=== PATIENT | female | born 1975 | race Caucasian/White ===

== ENCOUNTER 2018-03-28 22:26 | Emergency (ER) | payer SELFPAY ==
[2018-03-28] MEDS ORDERED: MAG HYDROX/ALUMINUM HYD/SIMETH 30 ML UDC PO ONE (22:37)
[2018-03-28] MEDS ORDERED: LIDOCAINE HCL 2% VISC. ORAL 300MG/15ML UDC PO ONE (22:37)
--- NOTE | 2018-03-28 22:41 | ED Physician Documentation ---
General Adult - HISTORIAN Historian: patient - HPI Stated Complaint: heartburn Chief Complaint: General Adult Additional Information: Patient presents to ED with heartburn. She ran out of her Dexilent medication and would like a refill. Onset: days ago (2) Timing: still present Further Comments: no - ROS CONST: no problems - PAST HX Past History: none Other History: none Surgeries/Procedures: none Allergies/Adverse Reactions: Allergies Allergy/AdvReac Type Severity Reaction Status Date / Time No Known Allergies Allergy Verified 03/28/18 22:41 Home Medications: Ambulatory Orders Medication Instructions Recorded Dexlansoprazole [Dexilant] 1 tab PO DAILY 03/28/18 Dexlansoprazole [Dexilant] 60 mg PO DAILY #30 cap. 03/28/18 - SOCIAL HX Smoking History: cigarettes Alcohol Use: none Drug Use: none - FAMILY HX Family History: No - REVIEWED ASSESSMENTS Nursing Assessment Reviewed: Yes Vitals Reviewed: Yes ED Results Lab/Radiology - Orders Orders: ED Orders Category Date Time Status Lidocaine 2%Visc 15ml [Xylocaine] Med 03/28/18 22:37 Once 15 mg PO NOW ONE Mag Hydrox/Aluminum Hyd/Simeth [Mylanta] Med 03/28/18 22:37 Once 30 ml PO NOW ONE General Adult Physical Exam - PHYSICAL EXAM GENERAL APPEARANCE: no distress EENT: TAYLOR NECK: supple RESPIRATORY: no resp distress CVS: reg rate & rhythm, heart sounds normal ABDOMEN: soft, normal bowel sounds BACK: no CVA tenderness SKIN: warm/dry EXTREMITIES: non-tender NEURO: oriented X3, motor nml Discharge Clincal Impression: Heartburn Prescriptions: Dexlansoprazole [Dexilant] 60 mg PO DAILY #30 cap. Referrals: Primary Doctor,No [Primary Care Provider] - 2 Days Condition: Stable Disposition: HOME, SELF-CARE Decision to Admit: NO Date of Decison to Admit: 03/28/18 Decision Time: 22:43
[2018-03-28 22:44] VITALS: BP 116/71
== END 2018-03-28 22:52 | disposition home or self-care (01) ==
LOC: ED 22:26
DX: R12 Heartburn (principal)
CPT/HCPCS: 99282; 99283; A9270

== ENCOUNTER 2018-05-07 05:15 | Emergency (ER) | payer SELFPAY ==
[2018-05-07] MEDS ORDERED: 0.9 % SODIUM CHLORIDE 50 ML IV ONE (05:26)
[2018-05-07] MEDS ORDERED: 0.9 % SODIUM CHLORIDE 1,000 ML IV ONE ×2 (05:26→05:40)
[2018-05-07] MEDS ORDERED: PROMETHAZINE HCL 25 MG/ML VIAL ONE (05:26)
[2018-05-07 05:49] LABS: BASOPHILS % 0.7 (0.0-1.5); MEAN CORPUSCULAR HEMOGLOBIN 30.6 pg (28.0-34.0); MONOCYTES % 8.9 % (0.0-11.0); NEUTROPHILS # 3.3 # k/uL (1.4-7.7)
[2018-05-07 05:57] VITALS: BP 133/99
[2018-05-07 06:02] LABS: eGFR (Non-African) > 60
[2018-05-07] MEDS ORDERED: MAG HYDROX/ALUMINUM HYD/SIMETH 30 ML, Lidocaine 2%Visc 15ml 20 MG, PHENobarb/HYOSCY/ATR... PO ONE ×3 (06:16)
[2018-05-07] MEDS ORDERED: MAG HYDROX/ALUMINUM HYD/SIMETH 30 ML UDC PO ONE (06:25)
[2018-05-07] MEDS ORDERED: LIDOCAINE HCL 2% VISC. ORAL 300MG/15ML UDC ONE (06:25)
--- NOTE | 2018-05-07 06:26 | ED Physician Documentation ---
Abdominal Pain - HISTORIAN Historian: patient - HPI Stated Complaint: abd pain, n/v Chief Complaint: Abdominal Pain Onset: hours (1 hour ago) Duration: constant Timing: still present Context: denies: out of country travel, bad food, recent trauma Severity: severe Quality: pain (epigastric), cramping Associated Symptoms: nausea, vomiting. denies: fever, chills, diarrhea Exacerbated by: nothing Relieved by: nothing Further Comments: yes (43 year old woman presents with complaints of cramping and abdominal pain. Patient reports similar pain for over one year, every 2-3 months. Is not followed by GI, does not have a PCP. Last GI doctor was in [place]. Patent reports waking from sleep with severe epigastric pain and cramping.) - ROS CONST: denies: no problems GI/: none CVS/RESP: none EYES/ENT: none MS/SKIN/LYMPH: none NEURO/PSYCH: none - SOCIAL HX Smoking History: cigarettes - FAMILY HX Family History: denies: none - PAST HX Past History: other (GERD, anxiety) Surgeries/Procedures: cholecystectomy, hysterectomy Home Medications: Ambulatory Orders Medication Instructions Recorded Sucralfate [Carafate] 1 gm PO ACHS #120 tablet 05/07/18 Allergies/Adverse Reactions: Allergies Allergy/AdvReac Type Severity Reaction Status Date / Time No Known Allergies Allergy Verified 03/28/18 22:41 - VITAL SIGNS Vital Signs: Vital Signs Temp Pulse Resp BP Pulse Ox 97.7 F 68 24 133/99 99 05/07/18 05:16 05/07/18 05:16 05/07/18 05:16 05/07/18 05:16 05/07/18 05:16 - REVIEWED ASSESSMENTS Nursing Assessment Reviewed: Yes Vitals Reviewed: Yes Progress - Progress Progress: 0630 Patient resting quietly after promethazine. very mild constipation on abd complete. Pain likely related to gastritis or IBS. Instructed patient to establish GI and PCP doctors. Patient verbalized understanding. ED Results Lab/Radiology - Lab Results Lab Results: Lab Results 05/07/18 05/07/18 05:40 05:39 WBC 8.00 K/ul K/ul (4.00-12.00) RBC 4.40 M/ul M/ul (3.90-5.20) Hgb 13.5 g/dL g/dL (12.0-16.0) Hct 39.9 % % (34.5-46.5) MCV 91.0 fl fl (80.0-100.0) MCH 30.6 pg pg (28.0-34.0) MCHC 33.7 g/dL g/dL (30.0-36.0) RDW 13.1 % % (11.3-14.3) Plt Count 324 K/mm3 K/mm3 (130-400) Neut % (Auto) 40.7 % % (39.0-79.0) Lymph % (Auto) 46.7 % % (16.0-50.0) Stark % (Auto) 8.9 % % (0.0-11.0) Eos % (Auto) 3.0 % % (0.0-6.8) Baso % (Auto) 0.7 (0.0-1.5) Neut # (Auto) 3.3 # k/uL # k/uL (1.4-7.7) Lymph # (Auto) 3.7 # k/uL # k/uL (0.6-4.0) Stark # (Auto) 0.7 # k/uL # k/uL (0.0-0.9) Eos # (Auto) 0.2 # k/uL # k/uL (0.0-0.6) Baso # (Auto) 0.1 # k/uL # k/uL (0.0-0.5) Sodium 135 mmol/L L mmol/L (136-145) Potassium 3.6 mmol/L mmol/L (3.5-5.1) Chloride 99 mmol/L mmol/L (98-107) Carbon Dioxide 30 mmol/L mmol/L (22-30) BUN 18 mg/dL H mg/dL (7-17) Creatinine 0.97 mg/dL mg/dL (0.52-1.04) Estimated Creat Clear 135 Est GFR ( Amer) > 60 (60 - ) Est GFR (Non-Af Amer) > 60 (60 - ) Glucose 89 mg/dL mg/dL (74-106) Calcium 8.5 mg/dL mg/dL (8.4-10.2) Total Bilirubin 0.3 mg/dL mg/dL (0.2-1.3) AST 32 U/L U/L (15-46) ALT 36 U/L U/L (13-69) Alkaline Phosphatase 36 U/L L U/L (38-126) Total Protein 6.4 g/dL g/dL (6.3-8.2) Albumin 3.9 g/dL g/dL (3.5-5.0) - Orders Orders: ED Orders Category Date Time Status Place IV Lock 1T Care 05/07/18 05:30 Active ABD COMPLETE [RAD] Stat Exams 05/07/18 Ordered CBC/PLATELET/DIFF Stat Lab 05/07/18 05:40 Completed CMP Stat Lab 05/07/18 05:39 Completed UA MACRO DIP ONLY Stat Lab 05/07/18 05:30 Received 0.9 % Sodium Chloride [Normal Saline] 1,000 ml Med 05/07/18 05:26 Discontinued IV .STK-MED 0.9 % Sodium Chloride [Normal Saline] 1,000 ml Med 05/07/18 05:40 Discontinued IV NOW 0.9 % Sodium Chloride [Sodium Chloride] 50 ml Med 05/07/18 05:26 Discontinued IV .STK-MED Dicyclomine HCl [Bentyl] Med 05/07/18 06:28 Discontinued 10 mg PO NOW ONE Dicyclomine HCl [Bentyl] Med 05/07/18 06:34 Discontinued 20 mg PO NOW ONE Lidocaine 2%Visc 15ml [Xylocaine] Med 05/07/18 06:25 Discontinued 300 mg .ROUTE .STK-MED ONE Mag Hydrox/Aluminum Hyd/Simeth [Mylanta] Med 05/07/18 06:25 Discontinued 30 ml PO .STK-MED ONE Mag Hydrox/Aluminum Hyd/Simeth [Mylanta] 30 ml Med 05/07/18 06:16 Ordered Lidocaine 2%Visc 15ml [Xylocaine] 20 mg PHENobarb/HYOSCY/ATROPINE/SCOP [] 10 ml PO NOW Magnesium Hydroxide [Milk of Magnesia] Med 05/07/18 06:48 Once 2,400 mg PO NOW ONE Promethazine HCl [Phenergan] Med 05/07/18 05:26 Discontinued 25 mg .ROUTE .STK-MED ONE Promethazine HCl [Phenergan] 12.5 mg Med 05/07/18 06:40 Active 0.9 % Sodium Chloride [Sodium Chloride] 50 ml IV NOW Abdominal Pain Physical Exam - Physical Exam General Appearance: moderate distress (patient lying in floor; would not get up, assisted to stretcher by staff. ) EENT: eye inspection normal, ENT inspection normal, pharynx normal, no signs of dehydration, TAYLOR, no nystagmus, TM's nml RESPIRATORY: no resp distress, chest non-tender, breath sounds normal CVS: reg rate & rhythm, heart sounds normal, equal pulses, no murmur, no gallop, PMI nml, no JVD, no friction rub, 24 ABDOMEN: soft, no organomegaly, no abdominal bruit, no distension, tenderness (epigastric with deep palpation; negative Patti, neg womack's), decreased BS. No: McBurney's point tenderne, rebound, distended SKIN: normal color, warm/dry, NR, INT, PAL, DR EXTREMITIES: non-tender, normal range of motion, no evidence of injury, no edema, J, [employer] NEURO: oriented X3, CN's nml as tested, motor nml, sensation nml Vital Signs: Vital Signs Temp Pulse Resp BP Pulse Ox 97.7 F 68 24 133/99 99 05/07/18 05:16 05/07/18 05:16 05/07/18 05:16 05/07/18 05:16 05/07/18 05:16 Discharge Clincal Impression: Abdominal cramping Gastritis Qualifiers: Gastritis type: unspecified gastritis Chronicity: acute Gastritis bleeding: without bleeding Qualified Code(s): K29.00 - Acute gastritis without bleeding Prescriptions: Sucralfate [Carafate] 1 gm PO ACHS #120 tablet Referrals: Primary Doctor,No [Primary Care Provider] - 2 Days Additional Instructions: Diet: Clear liquids Sprite/7-up Juices apple, white grape Gatorade/Powerade Jello Popsicles When tolerating clear liquids, advance to bland/brat diet - such as crackers, rice, Bananas, apples/applesauce or toast Return to the emergency department or call your doctor, if you are having severe abdominal pain, fever >101.0, or if there is blood in the vomit or diarrhea, or you cannot keep down liquids or solid food. Condition: Stable Disposition: 01 HOME, SELF-CARE Decision to Admit: NO Decision Time: 06:52
[2018-05-07] MEDS ORDERED: DICYCLOMINE HCL 20 MG TABLET PO ONE ×2 (06:28→06:34)
[2018-05-07] MEDS ORDERED: PROMETHAZINE HCL 12.5 MG in 0.9 % SODIUM CHLORIDE 50 ML IV ONE (06:40)
[2018-05-07 06:48] LABS: OCCULT BLOOD,URINE TRACE-INTACT (NEGATIVE); UROBILINOGEN URINE 0.2 Eu (0.2-1.0)
[2018-05-07] MEDS ORDERED: MAGNESIUM HYDROXIDE 2,400 MG/30 ML UDC PO ONE (06:48)
--- NOTE | 2018-05-07 09:04 | Diagnostic Imaging Report ---
SANA GRAMAJO (SHOE COVERER) - [facility] [address] [address] Report Submission Date: May 07, 2018 7:05:10 AM PHD INTERNSHIP Patient Study Name: JAMES CHEUNG Date: May 07, 2018 6:33:00 AM PHD INTERNSHIP Modality Type: CR Gender: F Description: ABD COMPLETE : 71 Institution: [facility] Physician: SANA GRAMAJO (JULIAN) - ER HISTORY: 43-year-old female with upper abdominal pain for 4 years. COMPARISON: None available TECHNIQUE: Supine and upright views of the abdomen were performed. FINDINGS: No abnormal bowel dilatation. Gas is present in the distal colon. The upright film does not demonstrate pathologic-appearing air-fluid levels or free air under the diaphragm. No abnormal calcifications are identified overlying the urinary tract. There are phleboliths in the pelvis. Surgical clips in the right upper quadrant are consistent with prior cholecystectomy. There is mild lumbar degenerative disc disease. IMPRESSION: 1. No evidence of bowel obstruction. 2. Postoperative changes of cholecystectomy. Electronically signed on May 07, 2018 7:05:10 AM PHD INTERNSHIP by: Kentrell NG
== END 2018-05-07 07:09 | disposition home or self-care (01) ==
LOC: ED 05:15
DX: K29.00 Acute gastritis without bleeding (principal); R10.13 Epigastric pain
CPT/HCPCS: 36415; 74019; 80053; 81002; 85025; 96374; 99283; 99284; A9270; J2550; J7030; S1016

== ENCOUNTER 2018-06-24 14:30 | Emergency (ER) | payer SELFPAY ==
--- NOTE | 2018-06-24 14:37 | ED Physician Documentation ---
Low Back Pain - HISTORIAN Historian: patient - HPI Stated Complaint: low back pain x 6 years Chief Complaint: Low Back Pain/ Injury History: back pain Onset: other (6 years ) Duration: intermittent Recent Injury: No Other Injuries: other (none ) Severity: moderate Quality: burning, sharp, dull, similar- prior back pain Associated Symptoms: other (she has tingling ) Worsened By:: upright position Relieved By: nothing Further Comments: yes (She states she has had low back pain and upper and middle for 6 years and she has had xrays most recently 6 years ago "I havent told my dr because i am focused on being a mom not focused on myself" She denies any new injury. No change in pain. No loss of control of bowel or bladder. She reports she does not frequently take OTC meds. She does not have a PCP due to no insurance) - ROS CONST: no problems CVS/RESP: none EYES/ENT: none MS/SKIN/LYMPH: none Neuro/Psych: none - PAST HX Past History: back pain Immunizations: UTD Allergies/Adverse Reactions: Allergies Allergy/AdvReac Type Severity Reaction Status Date / Time No Known Allergies Allergy Verified 06/24/18 17:01 Home Medications: Ambulatory Orders Medication Instructions Recorded Unobtainable 06/24/18 - SOCIAL HX Smoking History: non-smoker Alcohol Use: none Drug Use: none - FAMILY HX Family History: none - VITAL SIGNS Vital Signs: Vital Signs Temp Pulse Resp BP Pulse Ox 98.1 F 59 L 16 100/68 98 06/24/18 14:52 06/24/18 14:52 06/24/18 14:52 06/24/18 14:52 06/24/18 14:52 - REVIEWED ASSESSMENTS Nursing Assessment Reviewed: Yes Vitals Reviewed: Yes ED Results Lab/Radiology - Radiology Radiology Impressions: Examination: Plain film lumbar spine History: BACK PAIN Findings: 2 views of the lumbar spine demonstrate normal height. No anterior compression. Mild degenerative spurring. No soft tissue abnormalities. Right upper quadrant surgical clips. Impression: No acute osseous process. Electronically signed on Jun 24, 2018 3:32:00 PM CDT by: Eduni Anand - Orders Orders: ED Orders Category Date Time Status LUMBAR SPINE XR 2 OR 3 VIEWS [L SPINE 2 OR 3 VIEWS] [ Exams 06/24/18 Completed RAD] Stat Ketorolac Tromethamine [Toradol] Med 06/24/18 15:48 Discontinued 60 mg IM NOW ONE methylPREDNISolone ACETATE [Depo-Medrol] Med 06/24/18 15:49 Discontinued 80 mg IM NOW ONE Low Back Pain/Injury - Physical Exam General Appearance: no acute distress, alert EENT: eye inspection normal, no signs of dehydration Neck: non-tender Resp/CVS: chest non-tender Abdomen: non-tender Back: painless ROM, muscle spasm (upper and mid ). No: CVA tenderness Straight Leg Raising: Negative Left, Negative Right Neuro/Psych: oriented x3 Skin: warm/dry, normal color Extremities: non-tender, normal range of motion, no evidence of injury, no edema Discharge Clincal Impression: Low back pain Qualifiers: Chronicity: chronic Back pain laterality: midline Sciatica presence: without sciatica Qualified Code(s): M54.5 - Low back pain Referrals: Primary Doctor,No [Primary Care Provider] - 2 Days Comments: 1. Tylenol or Ibuprofen as directed on bottle for pain 2. Ice or heat for comfort 3. FOLLOW UP WITH YOUR PCP in 2 days 4. Cyclobenzaprine 10 mg take 1 by mouth every 8 hours as needed for pain 5. Return to ER for any increasing concerns Condition: Stable Disposition: 01 HOME, SELF-CARE Decision to Admit: NO Date of Decison to Admit: 06/24/18 Decision Time: 15:57
[2018-06-24] MEDS: KETOROLAC TROMETHAMINE 60 MG/2 ML VIAL IM ONE (16:00)
[2018-06-24] MEDS: methylPREDNISolone ACETATE 80 MG/ML VIAL IM ONE (16:01)
--- NOTE | 2018-06-24 16:32 | Diagnostic Imaging Report ---
ALFREDO ALLEN [facility] [address] [facility] [address] [place], [place]. [address] Report Submission Date: Jun 24, 2018 3:32:00 PM CDT Patient Study Name: JAMES CHEUNG Date: Jun 24, 2018 3:07:52 PM CDT Modality Type: DX Gender: F Description: L SPINE 2 OR 3 VIEWS : 71 Institution: [facility] Physician: ALFREDO ALLEN Examination: Plain film lumbar spine History: BACK PAIN Findings: 2 views of the lumbar spine demonstrate normal height. No anterior compression. Mild degenerative spurring. No soft tissue abnormalities. Right upper quadrant surgical clips. Impression: No acute osseous process. Electronically signed on Jun 24, 2018 3:32:00 PM CDT by: Eduin NG
[2018-06-24 19:52] VITALS: BP 104/67
== END 2018-06-24 16:20 | disposition home or self-care (01) ==
LOC: ED 14:30
DX: M54.5 Low back pain (principal)
CPT/HCPCS: 72100; 96372; 99283; J1040; J1885

== ENCOUNTER 2018-08-05 17:48 | Outpatient (CLI) | payer OTHER ==
--- NOTE | 2018-08-06 06:03 | Diagnostic Imaging Report ---
JOSELO CHAUDHRY [facility] [address] [facility].[address] [address] Report Submission Date: Aug 05, 2018 7:10:25 PM CDT Patient Study Name: JAMES CHEUNG Date: Aug 05, 2018 5:51:18 PM CDT Modality Type: DX Gender: F Description: BILAT FEET 3 VIEW : 71 Institution: [facility] Physician: JOSELO CHAUDHRY Examination: Plain film right and left foot History: BILATERAL PLANTAR FOOT PAIN, BUNYONS, TOES CROSSING EACHOTHER. PATIENT UNSTEADY ON HER FEET. Findings: 3 weight bearing views of the right and left foot demonstrates articular degenerative changes. Bilateral hallux valgus deformity. No fracture or dislocation. No soft tissue swelling. No joint effusion. Impression: Mild articular degenerative changes and bilateral hallux valgus deformities. No acute cortical abnormality. Electronically signed on Aug 05, 2018 7:10:25 PM CDT by: Eduin NG
== END 2018-08-05 17:50 ==
LOC: RAD 17:48
PROVIDERS: ATTEND Podiatrist Foot & Ankle Surgery
DX: M20.11 Hallux valgus (acquired), right foot (principal); M20.12 Hallux valgus (acquired), left foot